=== PATIENT | female | born 1955 | race Caucasian/White ===

== ENCOUNTER 2018-08-15 16:23 | Emergency (ER) | payer BC, SELFPAY ==
[2018-08-15 16:25] VITALS: BP 180/92; PULSE 76; RESP 18; TEMP 36.6; O2SAT 99
[2018-08-15] MEDS: ACETAMINOPHEN 325 MG TABLET 650 MG PO (16:51)
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
--- NOTE | 2018-08-15 16:57 | DI.CT.S_ITS ---
PROCEDURE: CT HEAD/BRAIN WO CON INDICATIONS: Ground level fall. TECHNIQUE: Noncontrast 4.5 mm thick angled axial sections acquired from the foramen magnum to the vertex, with coronal and sagittal reformats. For radiation dose reduction, the following was used: automated exposure control, adjustment of mA and/or kV according to patient size. COMPARISON: [facility], CT, CT FACIAL BONES WO CON, 08/15/2018, 17:13. FINDINGS: Image quality: Excellent. CSF spaces: Basal cisterns are patent. No extra-axial fluid collections. Ventricles are normal in size and shape. Brain: No intracranial hemorrhage, mass, or mass effect. Malik-white matter interface is preserved. Skull and face: Calvarium appears intact. There is a mildly displaced fracture of the nasal bones. Sinuses: Visualized sinuses demonstrate bilateral small air fluid levels within the maxillary sinuses. There is also a small amount of fluid in the ethmoid sinuses. No discrete sinus wall fracture visualized. Mastoid air cells are clear. IMPRESSION: 1. No acute intracranial abnormality. 2. Mildly displaced nasal bone fractures. 3. Air-fluid levels within the bilateral maxillary sinuses without discrete sinus wall fracture identified. Dictated by: Anders Quan M.D. on 08/15/2018 at 17:46 Approved by: Anders Quan M.D. on 08/15/2018 at 17:49
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
[2018-08-15 18:14] VITALS: BP 143/80; PULSE 64; RESP 16; O2SAT 99
[2018-08-15] MEDS: cephALEXin 250 MG CAPSULE 500 MG PO (18:59)
[2018-08-15] MEDS: TRAMADOL 50 MG TABLET PO (18:59)
--- NOTE | 2018-08-15 19:47 | PC.NURSE ---
Late Entry 190-wound on the bridge of nose cleaned with soap and bacitracin applied and covered with small bandaid. Pt tolerated well. Discussed signs and symptoms of infection discussed with pt such as increasing pain, swelling,redness, purulent discharge, fever and warmth to touch and verbalized the understanding. pt informed to keep the area clean, dry, and intact
== END 2018-08-15 19:07 | disposition home or self-care (01) ==
PROVIDERS: Emergency Provider Nurse Practitioner Family
DX: S06.0X0A Concussion without loss of consciousness, initial encounter (principal); S02.2XXB Fracture of nasal bones, initial encounter for open fracture; W19.XXXA Unspecified fall, initial encounter
CPT/HCPCS: 70450; 70486; 99282; 99284